=== PATIENT | male | born 1965 | race Caucasian/White ===

== ENCOUNTER → 2020-06-12 09:41 | Outpatient (CLI) | payer BC, SELFPAY ==
[2020-06-12 10:02] LABS: Bacteria Urine None Seen
[2020-06-12 10:43] LABS: Appearance Urine UA CLEAR; Bilirubin Urine UA NEGATIVE (NEGATIVE); Color Urine UA YELLOW; Glucose Urine UA NEGATIVE (Negative); Ketones Urine UA NEGATIVE (NEGATIVE); Leukocyte Esterase Urine UA NEGATIVE (NEGATIVE); Nitrite Urine UA NEGATIVE (Negative); Occult Blood Urine UA NEGATIVE (Negative); Protein Urine UA NEGATIVE (Negative); Specific Gravity Urine UA 1.015 (1.000-1.035); Urobilinogen Urine UA 0.2 E.U./dL (0.2)
[2020-06-12 11:02] LABS: Add Manual Diff / Slide Review NO; Basophils Absolute Auto 0 /uL (0-100); Basophils Percent Auto 0.5 % (0-2); Eosinophils Absolute Auto 200 /uL (0-450); Hemoglobin 14.9 g/dL (13.5-17.5); Lymphocytes Absolute Auto 2000 /uL (1100-4500); Lymphocytes Percent Auto 23.9 % (25-40); Mean Corpuscular HGB Conc 33.8 % (30-36); Mean Corpuscular Hemoglobin 34.8 PG (26-34); Monocytes Absolute Auto 600 /uL (0-900); Monocytes Percent Auto 7.7 % (3-14); Neutrophils Absolute Auto 5500 /uL (1500-7000); Neutrophils Percent Auto 65.9 % (50-75); Platelet Count 204 X10^3/uL (150-400); Red Blood Cell Count 4.27 X10^6/uL (4.5-5.9); Red Cell Distribution Width 13.3 % (11.6-14.8); White Blood Cell Count 8.3 X10^3/uL (4.5-11.0)
[2020-06-12 11:12] LABS: Hemoglobin A1C% w Est Avg Glu 5.6 % (4.0-6.0)
[2020-06-12 11:25] LABS: BUN Creatinine Ratio 10.4 (6-22); Blood Urea Nitrogen 7 mg/dL (9-20); Calcium 9.4 mg/dL (8.4-10.2); Carbon Dioxide 26 mmol/L (22-32); Chloride 103 mmol/L (98-107); Estimated Glomerular Filt Rate > 60.0 mL/min (>60); Glucose 101 mg/dL (70-100); HEMOLYSIS < 15 (0-50); Potassium 4.4 mmol/L (3.4-5.1); Sodium 138 mmol/L (137-145)
[2020-06-12 12:19] LABS: Culture Indicated Urine Cult Not Indicated; RBC Urine 0-1/HPF (0-5/HPF); Sperm Urine PRESENT; Squamous Epithelial Cell Urine 0-1 /HPF (0-5/HPF); WBC Urine 0-1/HPF (0-5/HPF)
== END ==
PROVIDERS: PCP Family Medicine; Referring Provider Orthopaedic Surgery; Visit Provider Orthopaedic Surgery
DX: Z01.812 Encounter for preprocedural laboratory examination (principal); Z01.818 Encounter for other preprocedural examination; R73.9 Hyperglycemia, unspecified; N39.0 Urinary tract infection, site not specified
CPT/HCPCS: 36415; 80048; 81001; 83036; 85025; 93005

== ENCOUNTER → 2020-07-09 08:17 | Outpatient (CLI) | payer BC, SELFPAY ==
[2020-07-10 06:49] LABS: COVID19 Sendout Not Detected (Not Detect)
== END ==
PROVIDERS: PCP Family Medicine; Visit Provider Nurse Practitioner
DX: Z11.59 Encounter for screening for other viral diseases (principal)
CPT/HCPCS: 87635

== ENCOUNTER 2020-07-12 06:15 | Day surgery (SDC) | payer BC, SELFPAY ==
[2020-07-09 13:47] VITALS: BMI 33.2
[2020-07-12] VITALS (16 sets, daily range): BP systolic 102–149; BP diastolic 58–95; PULSE 72–107; RESP 8–20; TEMP 36.2–36.8; O2SAT 93–98; BMI 32.1
--- NOTE | 2020-07-12 | DI.RAD.S_ITS ---
PROCEDURE: XR HIP W PEL IF DONE RT 2V INDICATIONS: RIGHT ANTERIOR HIP TECHNIQUE: 2 view(s) of the hip acquired. COMPARISON: None. FINDINGS: Bones: Patient is undergoing preparation for right hip arthroplasty, with hardware components in expected positions. The hip joint appears congruent. The visualized bony structures appear intact. Soft tissues: Overlying postoperative changes are noted. No suspicious soft tissue densities. IMPRESSION: Normal appearance of arthroplasty components on the right in preparation for placement of final components of right total hip arthroplasty. Dictated by: Collin Santos M.D. on 07/12/2020 at 13:09 Approved by: Collin Santos M.D. on 07/12/2020 at 13:10
--- NOTE | 2020-07-12 06:00 | DI.RAD.S_ITS ---
PROCEDURE: XR HIP W PEL IF DONE RT 2V INDICATIONS: RIGHT POSTOPERATIVE HIP TECHNIQUE: AP pelvis and lateral view of the right hip acquired. COMPARISON: [facility], [facility], XR HIP W PEL IF DONE RT 2V, 07/12/2020, 11:29. FINDINGS: Bones: Patient is status post right hip arthroplasty, with hardware components in expected positions. The hip joint appears congruent. The visualized bony structures appear intact. Soft tissues: Overlying postoperative changes are noted. No suspicious soft tissue densities. IMPRESSION: Normal alignment after right total hip arthroplasty earlier study same day. Dictated by: Collin Santos M.D. on 07/12/2020 at 13:08 Approved by: Collin Santos M.D. on 07/12/2020 at 13:09
[2020-07-12] MEDS: PREGABALIN 75 MG CAPSULE PO (06:48)
[2020-07-12] MEDS: ACETAMINOPHEN 325 MG TABLET 975 MG PO (06:48)
[2020-07-12] MEDS: LACTATED RINGERS 1,000 ML 42 ML IV ×2 (06:57→10:34)
[2020-07-12] MEDS: VANCOMYCIN 1,000 MG/200 ML PIGGYBACK 200 MG IV (06:57)
[2020-07-12] MEDS: CELECOXIB 200 MG CAPSULE PO (07:11)
--- NOTE | 2020-07-12 07:46 | PM.PREOP ---
Pre-operative Note COVID-19 COVID-19 status: Negative Interval Note History & Physical reviewed/Exam performed by Physician: Yes Changes to H&P: No
[2020-07-12] MEDS: MIDAZOLAM 2 MG/2 ML VIAL IV (07:47)
--- NOTE | 2020-07-12 07:48 | P.OP_ITS ---
Operative Date/Time/Diagnoses Date of procedure: 07/12/20 Time of procedure: 07:58 Pre-op diagnosis: right hip OA Post-op diagnosis: same Procedure & Clinicians Procedure: Right total hip arthroplasty anterior approach Same procedure as scheduled: Yes Indications: The patient has had progressively worsening right hip pain with radiographic changes consistent with arthritis. Non-operative management has failed and the patient has requested total hip replacement. The risks, benefits and alternatives to surgery were discussed with the patient prior to proceeding. Risks discussed included, but were not limited to, failure to relieve pain, leg length discrepancy, dislocation, stiffness, infection, nerve damage, deep venous thrombosis, pulmonary embolism, stroke, coma, heart attack, permanent paralysis and , as well as the potential need for eventual revision of the prosthetic. Surgeon: Elizabeth Talbot Front Office Supervisor: José White Anesthesia Type: General and Spinal Operative Notes Findings: Severe right hip osteoarthritis, tight hip, adequate bone and stability Closure Type: primary Specimen(s): none sent Prosthetic devices, grafts, tissues, transplants, or devices: Talbot [employer] Nephew 56 mm R3 cup, size 7 standard offset anthology, minus 3 x 36 femoral head, 1 screw 20 mm Estimated Blood Loss (mL): 250 Blood products transfused: none Procedure in detail: The patient was brought to the operating room. Patient was carefully positioned in the supine position. Time-out was performed and antibiotics were given. Anesthesia was induced. He was positioned in the on the table in order to allow hyperextension of the hip. The right lower extremity was prepped and draped in a standard sterile fashion. An anterior right hip incision was made 1 fingerbreadth lateral to the anterior superior iliac spine and extended distally towards the greater trochanter. Dissection was carried out through skin and subcutaneous tissues. The skin and subcutaneous tissues were carefully injected with Lidocaine with epi. Superficial hemostasis was achieved. The fascia over the tensor fascia rosibel was defined and incised with a knife. Two Allis clamps were used to grasp the fascia. Tensor fascia rosibel was retracted laterally. A gelpi retractor was placed. Dissection was carried out down along the neck. The circumflex vessels were carefully identified and cauterized with the Aqua Mantis. There was good visualization of the femoral neck. A Cobra was placed superior to the neck and the gluteus fibers were carefully stripped from that superior aspect of the capsule. A 2nd retractor was placed along the inferior aspect of the neck. The rectus insertion along the capsule was partially released. A 3rd retractor that was then gently placed over the rim of the acetabulum under the rectus. Capsule was carefully incised and released from the intertrochanteric line circumferentially superior to the mid sagittal line and inferiorly to the mid sagittal line until the lesser trochanter was palpable. A tag stitch was placed both in the superior and inferior limb of the capsular insertion. Along the acetabulum capsule was also released up to the mid sagittal 12:00 position. A portion of the labrum was resected. A saw was used to perform an osteotomy at the level of the intertrochanteric line and the junction of the superior femoral neck leaving approximately 1 finger breath of residual inferior neck above the lesser trochanter. A 2nd cut was made along the femoral neck at the base of the head and a napkin ring of neck was removed. Corkscrew was placed in the femoral head and the head was removed without difficulty. Retractors were then repositioned around the acetabulum. Residual labrum was resected and additional osteophytes were removed. A reamer that was 4 mm below the templated size was placed by hand in the acetabulum and it was reamed to centralize the acetabulum. It was then reamed up to 2 under the templated size and fluoroscopy was brought in to confirm the position of the reaming and depth of reaming. I reamed 1 under the anticipated size. A trial cup was placed and noted that it was appropriately sized and fluoroscopy confirmed position and depth. The component was open and inserted without difficulty fluoroscopic imaging was used to confirm that the cup had been adequately seated and was well positioned. It was further stabilized with a single screw. Neutral poly liner was placed. The cup was tested and noted to be stable. Attention was then directed to the femur. The femur was gently hyperextended additional capsular release was performed as needed in order to allow adequate visualization of the proximal femur with elevation of the femur. Patient was placed in a hyperextended slightly adducted position with maximum external rotation. Box osteotome was used to check for any residual neck as well as sclerotic bone along the trochanter. [place] pepper was placed in the femur. Additional broaching was performed. Canal finder was used to determine the alignment of the canal and position. Size 1 broach was placed. The canal was then appropriately broached up to the templated size as long as there was adequate stability of the broach and serial advancement of the broach without excessive impingement. Specific attention was directed at avoiding varus attempting to direct the distal aspect of the broach more anteriorly and avoiding excessive anteversion. Trial reduction showed acceptable range of motion, good stability, no posterior impingement, evangelical of leg length and appropriate lateral shuck. I also hyperflexed the hip and checked that there was no impingement anteriorly and there was good stability with flexion, adduction and internal rotation. He had a very tight hip capsule which required capsular release and meticulous mobilization around the femur as well as in the acetabulum for cup insertion. Marcaine and Exparel were injected. The stem was placed without difficulty. Repeat trial reduction and x-ray showed acceptable overall position, length, and no evidence of the femoral fracture. Final head was placed. Wound was meticulously irrigated with normal saline. The hip was reduced and additional Exparel and Marcaine were injected. The capsule was closed with interrupted nonabsorbable sutures. The fascia of the tensor was closed with interrupted and running Vicryl. No drain was placed. Any tensor fascia rosibel muscle that appeared to be contused or injured which was a minimal amount was carefully resected. Capsule around the tensor was injected with Exparel and Marcaine. The skin was closed with barbed stitches for the subcutaneous tissue and skin. We also used surgical glue. The wound was dressed sterilely. Brief Betadine soak was also used and was meticulously irrigated with normal saline. Patient was transferred to recovery room in satisfactory condition. Complications: none Post-operative Condition: stable Disposition: Acute Care Plan for aftercare: The patient will be maintained on a standard total hip replacement protocol with weight bearing as tolerated and anterior hip precautions. The patient will receive Aspirin and sequential compression devices for DVT prophylaxis. The patient will be discharged home when safe for the home environment.
[2020-07-12] MEDS: CEFAZOLIN 2 GM/100 ML FROZ.PIGGY IV ×3 (07:58→23:31)
--- NOTE | 2020-07-12 08:36 | SUR.OPER ---
Supine on padded [place] table with bilateral legs secured in padded positioning boots and suspended in positioning spars, operative leg in traction per surgeon. Head on one pillow. Arm on non-operative side secured on padded armboard <90 degrees abduction. Arm on operative side padded and resting across chest then secured with tape over sheet. Padded perineal post in place per surgeon.
[2020-07-12] MEDS: BUPIVACAINE 0.25% W/ EPI 30 ML VIAL 60 ML INJ (08:53)
[2020-07-12] MEDS: BUPIVACAINE LIPOSOME 266 MG/20 ML VIAL INJ (08:53)
[2020-07-12] MEDS: TRANEXAMIC ACID 1,000 MG VIAL 1000 MG INJ ×2 (08:54→12:07)
[2020-07-12] MEDS: fentaNYL 100 MCG/2 ML INJ IV ×2 (13:30→13:40)
[2020-07-12] MEDS: OXYCODONE/ACETAMINOPHEN 5/325 TABLET 1 TAB PO (13:52)
[2020-07-12] MEDS: IBUPROFEN 400 MG TABLET PO ×3 (14:37→20:26)
[2020-07-12] MEDS: LACTATED RINGERS 1,000 ML 125 ML IV ×2 (14:37→23:08)
[2020-07-12] MEDS: ACETAMINOPHEN 325 MG TABLET 650 MG PO ×2 (14:37→20:26)
--- NOTE | 2020-07-12 16:22 | PT.IIE ---
Current Diagnoses Unilateral primary osteoarthritis, right hip (07/12/20) Pain in right hip (07/12/20) Trochanteric bursitis, right hip (07/12/20) Surgery Performed Operation Date: 07/12/20 07:45 Actual Procedures p Total Hip Arthroplasty/Anterior Approach(Right) - Elizabeth Talbot MD Surgical History (Last Updated 07/09/20 @ 14:10 by Nhi Lynn RN) History of lumbar fusion (Acute 12/2009) History of surgery (Acute 2005) Hx of elbow surgery (Acute 2011) Hx of hernia repair (Acute ~1982) Medical History (Last Updated 07/09/20 @ 14:10 by Nhi Lynn RN) Anxiety (Acute) Arthritis (Acute) Chronic back pain (Acute) Diverticulitis (Acute) Eczema (Acute) LACY (obstructive sleep apnea) (Acute) Osteoarthritis (Acute) RLS (restless legs syndrome) (Acute) Physical Therapy Inpatient Evaluation/Re-Eval M1 PT/OT-IP Prior Functional Status Start: 07/12/20 14:52 Freq: NEEDED Status: Active Protocol: Document 07/12/20 16:02 DE (Rec: 07/12/20 16:13 DE [id number]) Medical Review Prior Functional Status Medical History Reviewed Yes Diet/Fluid Consistency Regular Communication WNL. No deficits noted. Able to make needs known. Mobility and Gait IND with all mobility and amb without AD at baseline. Activities of Daily Living and IADL's IND with all ADLs and IADLs at baseline. Social History Household Members spouse Living Arrangements House Number of Floors (Floors) One Floor Number of Stairs To Enter/Railing? 0 LINDEN through garage. 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 Pt works as a boat mechanic. Pt doesn' t have any grab bars near toilet but there is a counter top he can use for support if needed. Pt also has adjustable bed. This section is written by Jason MORELAND. It has been reviewed and approved by Kamar Sheppard , PT M2 PT-IP Current Condition Start: 07/12/20 14:52 Freq: NEEDED Status: Active Protocol: Document 07/12/20 16:04 (Rec: 07/12/20 16:22 [id number]) Physical Therapy Current Condition Current Condition Evaluation Date 07/12/20 Treatment Diagnosis R ALEJANDRA with anterior approach, difficulty in walking Onset Date 07/12/20 Precautions Anterior Hip Precautions No Hip Extension,No Hip External Rotation Weight Bearing Status Weight Bearing Status Weight Bear as Tolerated M3 PT-IP Subjective Start: 07/12/20 14:52 Freq: NEEDED Status: Active Protocol: Document 07/12/20 16:04 (Rec: 07/12/20 16:22 [id number]) Subjective Physical Therapy Visit Type Type Initial Evaluation Visit Start Time 15:29 Visit Stop Time 15:56 Total Visit Minutes 26 Notes at bedside. Co-tx with SPT Jason Blank Number of [employer] WELL[employer] COORDINATOR Visits 0 Physical Therapy Visit Comments Patient Comments Im feeling pretty good except my groin area is still numb Patient Goals To regain his mobility and strength in order to return home Therapy Pain Assessment Pain When Pain Assessed During Mobility Pain Present Pain Present Pain Reported Location Right Hip Intensity 3 Description Aching,With Movement Pain Management Techniques Timing of Activity with Medications M4 PT-IP Mobility and Gait Start: 07/12/20 14:52 Freq: NEEDED Status: Active Protocol: Document 07/12/20 16:04 (Rec: 07/12/20 16:22 [id number]) PT-Bed Mobility Assessment Supine to Sit Supine to Sit Standby Assistance Scooting Scooting to Edge of Bed Standby Assistance PT-Transfer Assessment Sit to and From Stand Sit to and from Stand Contact Guard Assistance,Use of Upper Extremities Equipment Transfer Assistive Device Gait Belt,Front Wheeled Walker Orthotic/Prosthetic Devices or Brace: No Transfers Transfer Destination Bed,Chair Transfer Technique Stand Step Pivot Transfer Ability Level of Assist Contact Guard Assistance,Use of Upper Extremities Comments Mobility Comments Pt was in bed upon SPT and PT arrival. at bedside. Pt is AxO x 4 and able to move B LEs. He was able to answer all questions and recalled post op precautions. He initially completed supine to long sit followed by lifting his LE one at a time to sit at EOB on L side. He then stood up with with FWW CGA and praciticed lateral weight shift. He was able to amb immediately with close to WFL gait pattern with slight antalgic pattern only. Pt was well aware of his precautions to avoid hip ER and extension. He walked up to the hallway and returned to room after for a total of 45 ft with CGA and step over pattern. He returned and requested to use bathroom to void. He stood in front of the toilet and able to stand unsupported for a few seconds to void but unsuccessful. He then walked out and transferred himself to chair with stand step pivot safely with good descend via use of chair armrests. BP at 122/84. Call light placed within reach . Gait Assessment Gait Gait Assistance Required: Contact Guard Assist Distance (Feet) 45 Able to Maintain Weight Bearing Status Yes During Gait Assistive Devices Assistive Device Gait Belt,Front Wheeled Walker Orthotic/Prosthetic Devices or Brace: No Gait Deviations General Gait Pattern Antalgic,Decreased Stride Length,Decreased Feet Clearance Factors Limiting Gait Function Factors Limiting Gait Function Decreased Activity Tolerance, Decreased Strength,Limited Range of Motion,Pain,Poor Balance Comments Gait Comments see mobility comments. Stair Climbing Assessment Comments Stair Climbing Comments did not assess yet. PT-Balance Assessment Sitting Balance and Reactions Static Sitting Balance Ability Normal Dynamic Sitting Balance Ability Normal Standing Balance and Reactions Static Standing Balance Ability Normal Dynamic Standing Balance Ability Good Device Used FWW M5 PT-IP Objective Assessments Start: 07/12/20 14:52 Freq: NEEDED Status: Active Protocol: Document 07/12/20 16:04 (Rec: 07/12/20 16:22 [id number]) Orientation Orientation/Cognition Level of Alertness Alert Orientation Name,Age,Birthday,Month,Date, Year,Day of Week,Place, Situation Language Function Ability No Deficits Noted Safety Awareness Understands Safety Issues Memory Description No Deficits Noted Gross Range of Motion Upper Extremity ROM Assessment Within Functional Limits Lower Extremity ROM Assessment Right Impaired Strength Upper Extremity Strength Assessment Within Functional Limits Lower Extremity Strength Assessment Right Impaired Hip 4-/5 Knee 4+/5 Coordination Assessment Gross Coordination Gross Coordination WNL Sensation Assessment Sensation Gross Sensation Right LE Impaired Light Touch Impaired Sensation Description Numbness Comments Sensation Comments @ groin and lateral aspect Muscle Tone Muscle Tone WNL Yes M6 PT-IP Treatment Start: 07/12/20 14:52 Freq: NEEDED Status: Active Protocol: Document 07/12/20 16:04 (Rec: 07/12/20 16:22 [id number]) Physical Therapy Treatment Exercises Exercises Ankle Pumps,Gluteal Sets,Quad Sets Education Education Provided Precautions,Weight Bearing Status,Post-Op Packet,Safety M7 PT-IP Assessment and Plan Start: 07/12/20 14:52 Freq: NEEDED Status: Active Protocol: Document 07/12/20 16:04 (Rec: 07/12/20 16:22 [id number]) PT Summary Assessment and Plan Potential Rehabilitation Potential Excellent Status of Condition at Evaluation Stable Summary Impairments Pain,ROM,Strength,Balance, Sensation,Bed Mobility, Transfers,Gait,Activity Tolerance Assessment Summary This is a low complexity evaluation for this 55 yo male s/p POD0 LTHA with anterior approach. PLOF= pt is completely independently for mobility without using AD. 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 CLOF = Pt is able to amb 45 ft with FWW with minimal antaglic gait. He is well aware of his post op precautions with good safety awareness as well. Expect pt to be d/c home with assistance tomorrow morning, along with outpatient PT. Goals Bed Mobility Goal Standby Assistance Transfer Goal Standby Assistance,Front Wheeled Walker Gait Goal Standby Assistance,Front Wheel Walker Gait Distance 200 Days to Meet Goals 2 Frequency of Treatment Frequency Of Treatment Twice a Day Treatment Plan Physical Therapy Treatment Plan Bed Mobility Training,Transfer Training,Gait Training, Therapeutic Exercise,Balance Retraining,Post Op Education, Discharge Planning,Hot or Cold Pack,Neuromuscular Re-ed Other Recommendations and Next Treatment mobility as ashwin Focus Recommendations To Nursing Amount of Assist Needed 1 Person Assist Discharge Recommendations PT Discharge Recommendations Home with Assistance, Outpatient PT Transportation Needs at Discharge Private Vehicle
[2020-07-12] MEDS: TAMSULOSIN 0.4 MG CAPSULE PO (17:13)
[2020-07-12] MEDS: LORazepam 0.5 MG TABLET PO (19:01)
[2020-07-12] MEDS: DOCUSATE 100 MG CAPSULE PO (20:26)
[2020-07-12] MEDS: ASPIRIN EC 81 MG TABLET PO (20:26)
[2020-07-12] MEDS: OXYCODONE IR 5 MG TABLET PO ×2 (20:29→23:31)
--- NOTE | 2020-07-12 23:47 | PC.NURSE ---
Addendum entered by Radha Jay R.N. 07/13/20 06:28: Medicated for 3/10 right LE pain with Oxycodone. Original Note: Patient is alert and oriented. Breath sounds CTA with RA sat of 97%. HRR. Denies nausea. BT present and is passing flatus. Voiding per urinal; denies dysuria, frequency or urgency. Able to move self in bed. Uses walker and 1 assist when out of bed due weakness in right LE. Aquacel dressing to right hip is CDI. Complains of 6/10 pain in right hip/thigh so medicated with Oxycodone and ice applied. CMS is intact. Wearing bilateral calf SCD's. Fall risk score is moderate and bed alarm is activated. CIWA is 0.
[2020-07-13] MEDS: IBUPROFEN 400 MG TABLET PO ×3 (01:11→09:49)
[2020-07-13] MEDS: OXYCODONE IR 5 MG TABLET PO ×3 (02:29→09:48)
[2020-07-13 05:10] VITALS: BP 118/72; PULSE 77; RESP 16; TEMP 36.7; O2SAT 97
[2020-07-13 07:00] LABS: Hematocrit 34.9 % (41-53); Hemoglobin 11.8 g/dL (13.5-17.5)
--- NOTE | 2020-07-13 08:19 | PM.PN.1 ---
Subjective Subjective Date Patient Seen: 07/13/20 Time Patient Seen: 08:19 Interval history: Patient is POD#1 s/p right anterior ALEJANDRA with Dr. Talbot. Patient doing well. Pain controlled with Oxycodone/Advil/Tylenol. He has been ambulating well both with PT yesterday and around the room today/overnight. Voiding appropriately. Tolerating a diet. No complaints. Exam Vital Signs (past 8 hours): - 07/13/20 05:10 Temperature 98.1 F Pulse Rate 77 Respiratory Rate 16 Blood Pressure 118/72 Pulse Oximetry 97 Oxygen Delivery Method Room Air Oxygen Flow Rate 0 Narrative Exam Narrative: 55 year old male resting in chair. Alert and oriented in no acute distress. Dressing in place is CDI. Patient able to perform straight leg raise. Calves soft, nontender. Objective Labs Result Diagrams: 07/13/20 06:52 Labs: Laboratory Results - last 24 hr 07/13/20 06:52 Hgb 11.8 L Hct 34.9 L Assessment & Plan Assessment & Plan narrative: Patient doing well postoperatively. He has already mobilized extensively. His is available at home as caregiver. He will be provided script for Oxycodone for postop pain relief. Continue ASA 81mg BID for DVT prophylaxis. Discharge to home today.
[2020-07-13 08:30] VITALS: BP 134/71; PULSE 76; RESP 16; TEMP 36.4; O2SAT 98
--- NOTE | 2020-07-13 09:02 | CM.DANOTE ---
Addendum entered by Lynda Gracia LPN 07/13/20 10:51: A check in now shows that pt did leave for home in company of his before Team Rounds were over. No d/c concerns were identified by the care team members. Original Note: Discharge Planning/Care Management DCP: assessment: case received, EMR reviewed. DC to home order noted by ortho team. Pt is a 55 year old male who admitted yesterday for a scheduled R ALEJANDRA/anterior approach Payer: DEACON Alvarez PCP: Kareem Kebede PT did work with pt late yesterday and documenation indicates pt doing well thus far for his pre-op plan of home, 's prn support and OUTPT PT. Will discuss in Team Rounds and follow for any d/c needs that may arise. CM Discharge Assessment Start: 07/13/20 09:01 Freq: Status: Active Protocol: Document 07/13/20 09:01 ITV (Rec: 07/13/20 09:02 ITV [id number]) Discharge Planning Assessment Advance Directives? No History Provided By Medical Record Prior Living Arrangements House Household Members spouse Independent with ADL's Yes Is patient alert and oriented? Yes Discharge Plan Home Review Status In Process Pre-Anesthesia Assessment Start: 07/09/20 13:47 Freq: Status: Complete Protocol: Document 07/09/20 13:47 CAB (Rec: 07/09/20 14:47 CAB [id number]) Pre-Anesthesia Assessment PAC Comment Pt would like a nicotine patch Patient Information Reviewed Via Phone Assessment Assessment Completed With Patient H&P Completed Within 30 Days Yes Diagnostic Results BMP/CMP,CBC,EKG,Urinalysis Comment Labs/EKG @ [facility] 06/12/20, COVID screen @ [facility] 07/09/20-Pending Primary Care Provider Kareem Kebede Seen Specialist in Last 12 Months Yes Specialist Seen Orthopedist Primary Language [place] Alterations Tailor Required No Height 167.64 cm Weight 93.44 kg Body Mass Index (BMI) 33.2 Hearing Ability Normal Visual Assist Glasses Barriers to Learning None Hx Anesthesia Reactions No: Untreated Sleep apnea Hx Family Anesthesia Reaction No Hx Malignant Hyperthermia No Hx Blood Transfusions Yes: Age 18 months old, pt thinks it was related to anemia Anesthesia Review Requested No alcohol intake current alcohol intake frequency 3 or more drinks per day Alcohol Intake Frequency Other: Currently 6 drinks daily, encouraged to reduce daily intake Smoking Status Current every day smoker Tobacco type cigarettes Smoking packs per day 1 Substance Use Type does not use Pain Present Pain Reported Musculoskeletal Symptoms Abnormal Gait,Back Pain, Difficulty Walking,Joint Pain History of Falling (Recent or History of No ) Patient is completely paralyzed or No completely immobile Mental Status Oriented to own ability Is patient on oxygen? No Does patient have GRAJEDA/SOB No Hx Sleep Apnea Yes CPAP/BIPAP use prescribed not used Currently Taking a Beta Alon No Can You Climb a Flight of Stairs Without Yes SOB Hx Chest Pain No Hx SOB No Hx Syncope or Dizziness No Anti-Coagulant Therapy No Has a Histologic Technician No Cardiac Testing No Hx Pacemaker/ICD No Pacemaker Rep Required? No Cardiac Clearance Received Not Applicable Diet Type At Home Regular dysphagia No Gastrointestinal Symptoms Constipation,Hemorrhoids Urinary Catheter Present No Hx Urinary Self Catheterization No Diabetes No HgbA1C 5.6 Date 06/12/20 Hx Drug Resistant Organism No Presence of External or Internal Medical Yes: Lumbar fusion Devices Have you had any close contact with No someone diagnosed with COVID-19? Marital Status Lives With spouse Prior Living Arrangements House Number of Floors (Floors) One Floor Support System Spouse Does the Patient Have Assistance After Yes Surgery Patient Discharge Plan Description Return Home Comment Pt advised overnight stay per surgeon Feels Safe in Current Environment Yes Been Physically Hurt or Threatened By a No Person in Current Environment Do you have thoughts of harming yourself None or others? Are you currently considering suicide? No Do you have a plan to hurt yourself or No Plan others? Do You Have Any Spiritual Beliefs That No May Affect Your HC Choices? Do You Have Any Cultural Practices That No May Affect Your HC Choices? Who Can We Speak to About Patient's Care Family, friends Identifying Code for Release of Patient Declines to issue Information Health Care Proxy/Next of Kin Alpa () Health Care Proxy Emergency Contact Name Alpa () Emergency Contact Advance Directives? No Power of Gang Drill Operator No PAC Instructions Durable medical equipment, Medications to take/avoid, Nasal antibiotic,No ETOH/ petroleum product on skin DOS, NPO,Pre-surgical wash,Sturdy shoes/comfortable clothes
[2020-07-13] MEDS: DOCUSATE 100 MG CAPSULE PO (09:48)
[2020-07-13] MEDS: ACETAMINOPHEN 325 MG TABLET 650 MG PO (09:48)
[2020-07-13] MEDS: ASPIRIN EC 81 MG TABLET PO (09:48)
[2020-07-13] MEDS: TAMSULOSIN 0.4 MG CAPSULE PO (09:49)
--- NOTE | 2020-07-13 10:01 | PT.IPTN ---
Current Diagnoses Unilateral primary osteoarthritis, right hip (07/12/20) Pain in right hip (07/12/20) Trochanteric bursitis, right hip (07/12/20) Surgery Performed Operation Date: 07/12/20 07:45 Actual Procedures p Total Hip Arthroplasty/Anterior Approach(Right) - Elizabeth Talbot MD Physical Therapy Treatment Note M2 PT-IP Current Condition Start: 07/12/20 14:52 Freq: NEEDED Status: Discharge Protocol: Document 07/12/20 16:04 HH (Rec: 07/12/20 16:22 HH [id number]) Physical Therapy Current Condition Current Condition Evaluation Date 07/12/20 Treatment Diagnosis R ALEJANDRA with anterior approach, difficulty in walking Onset Date 07/12/20 Precautions Anterior Hip Precautions No Hip Extension,No Hip External Rotation Weight Bearing Status Weight Bearing Status Weight Bear as Tolerated M3 PT-IP Subjective Start: 07/12/20 14:52 Freq: NEEDED Status: Discharge Protocol: Document 07/13/20 09:47 KS (Rec: 07/13/20 12:06 KS [id number]) Subjective Physical Therapy Visit Type Type Treatment Note Visit Start Time 09:47 Visit Stop Time 10:01 Total Visit Minutes 14 Number of STONEWORKING BELT SANDER Visits 1 Physical Therapy Visit Comments Patient Comments Pt eager to return home w/ . Patient Goals To regain his mobility and strength in order to return home Therapy Pain Assessment Pain When Pain Assessed During Mobility Pain Present Pain Present Pain Reported Location Right Hip Intensity 4 Scale Used Numeric (0 - 10) Description Aching,With Movement Pain Management Techniques Timing of Activity with Medications M4 PT-IP Mobility and Gait Start: 07/12/20 14:52 Freq: NEEDED Status: Discharge Protocol: Document 07/13/20 09:47 KS (Rec: 07/13/20 12:06 KS [id number]) PT-Bed Mobility Assessment Supine to Sit Supine to Sit Standby Assistance Sit to Supine Sit to Supine Standby Assistance Scooting Scooting to Edge of Bed Standby Assistance PT-Transfer Assessment Sit to and From Stand Sit to and from Stand Standby Assistance,1 Person Assistance,Use of Upper Extremities Equipment Transfer Assistive Device Gait Belt,Front Wheeled Walker Orthotic/Prosthetic Devices or Brace: No Transfers Transfer Destination Bed,Chair Transfer Technique pt ambulated w/ FWW Transfer Ability Level of Assist Standby Assistance,1 Person Assistance,Use of Upper Extremities Comments Mobility Comments Pt in chair upon arrival from therapy w/ in room. Pt SBA for sit<>stand from chair, pt then performed bed mobility sit<>sup<>sit SBA. Pt then sit<>stand SBA w/ FWW and ambulated to platform step . Pt ascended/descended 1 platform step w/ FWW SBA w/ cues for leg sequencing. Pt then ambulated additional ~100 ft w/ FWW. Pt demonstrated good safety and use of FWW as well as good awareness of precautions. Pt returned to chair in room and left in chair w/ all needs in reach. Pt confirms he has outpatient rehab set up to begin on the . Gait Assessment Gait Gait Assistance Required: Standby Assistance,1 Person Assist Distance (Feet) 150 Able to Maintain Weight Bearing Status Yes During Gait Assistive Devices Assistive Device Gait Belt,Front Wheeled Walker Orthotic/Prosthetic Devices or Brace: No Gait Deviations General Gait Pattern Antalgic,Decreased Stride Length,Decreased Feet Clearance Factors Limiting Gait Function Factors Limiting Gait Function Decreased Activity Tolerance, Decreased Strength,Limited Range of Motion,Pain Comments Gait Comments see mobility comments. Stair Climbing Assessment Evaluation Level of Assist On Stairs Standby Assistance,1 Person Assistance Devices Stair Climbing Assistive Devices Front Wheel Walker Technique/Endurance Stair Climbing Direction Ascend and Descend Stair Climbing Technique Step to Step Number of Steps Climbed 1 Stair Climbing Set # Repetitions (reps) 1 Comments Stair Climbing Comments Pt ascended/descended 1 platform step w/ FWW SBA w/ cues for leg sequencing. Pt states he feels safe to complete platform step at home . PT-Balance Assessment Sitting Balance and Reactions Static Sitting Balance Ability Normal Dynamic Sitting Balance Ability Normal Standing Balance and Reactions Static Standing Balance Ability Normal Dynamic Standing Balance Ability Good Device Used FWW M5 PT-IP Objective Assessments Start: 07/12/20 14:52 Freq: NEEDED Status: Discharge Protocol: Document 07/12/20 16:04 (Rec: 07/12/20 16:22 [id number]) Orientation Orientation/Cognition Level of Alertness Alert Orientation Name,Age,Birthday,Month,Date, Year,Day of Week,Place, Situation Language Function Ability No Deficits Noted Safety Awareness Understands Safety Issues Memory Description No Deficits Noted Gross Range of Motion Upper Extremity ROM Assessment Within Functional Limits Lower Extremity ROM Assessment Right Impaired Strength Upper Extremity Strength Assessment Within Functional Limits Lower Extremity Strength Assessment Right Impaired Hip 4-/5 Knee 4+/5 Coordination Assessment Gross Coordination Gross Coordination WNL Sensation Assessment Sensation Gross Sensation Right LE Impaired Light Touch Impaired Sensation Description Numbness Comments Sensation Comments @ groin and lateral aspect Muscle Tone Muscle Tone WNL Yes M6 PT-IP Treatment Start: 07/12/20 14:52 Freq: NEEDED Status: Discharge Protocol: Document 07/13/20 09:47 KS (Rec: 07/13/20 12:06 CT [id number]) Physical Therapy Treatment Education Education Provided Precautions,Weight Bearing Status,Post-Op Packet,Safety M7 PT-IP Assessment and Plan Start: 07/12/20 14:52 Freq: NEEDED Status: Discharge Protocol: Document 07/13/20 09:47 KS (Rec: 07/13/20 12:06 CT [id number]) PT Summary Assessment and Plan Potential Rehabilitation Potential Excellent Status of Condition at Evaluation Stable Summary Impairments Pain,ROM,Strength,Balance, Sensation,Bed Mobility, Transfers,Gait,Activity Tolerance Progress Towards Goals Progressing Toward Goals Assessment Summary Pt SBA for all mobility, transfers, ambulation, and stairs and has good awareness for hip precautions and safety . Pt ambulated ~150 ft w/ FWW and ascended/descended 1 platform step w/ FWW and cues for leg sequencing. Pt will benefit from outpatient therapy to improve strength and ROM, which he has set up to begin on the . Goals Bed Mobility Goal Standby Assistance Transfer Goal Standby Assistance,Front Wheeled Walker Gait Goal Standby Assistance,Front Wheel Walker Gait Distance 200 Days to Meet Goals 2 Frequency of Treatment Frequency Of Treatment Twice a Day Treatment Plan Physical Therapy Treatment Plan Bed Mobility Training,Transfer Training,Gait Training, Therapeutic Exercise,Balance Retraining,Post Op Education, Discharge Planning,Hot or Cold Pack,Neuromuscular Re-ed Other Recommendations and Next Treatment mobility as ashwin Focus Recommendations To Nursing Amount of Assist Needed 1 Person Assist Discharge Recommendations PT Discharge Recommendations Home with Assistance, Outpatient PT Transportation Needs at Discharge Private Vehicle
--- NOTE | 2020-07-13 10:23 | PC.NURSE ---
Day shift note: Patient cleared for discharge home by PT and PA. Discharge instructions given to both patient and , discussed importance of F/U with Ortho appt, new medications, dressing care, mobility precautions, and s/sx of infections. Both verbalized understanding of instructions. Discharged home via private vehicle.
== END 2020-07-13 10:25 | disposition home or self-care (01) ==
LOC: OR 06:16 → AC 06:18
PROVIDERS: PCP Family Medicine; Referring Provider Family Medicine; Visit Provider Orthopaedic Surgery
PROC: (CPT 27130; principal; 2020-07-12 07:45)
DX: M16.11 Unilateral primary osteoarthritis, right hip (principal); M70.61 Trochanteric bursitis, right hip; G47.33 Obstructive sleep apnea (adult) (pediatric)
CPT/HCPCS: 27130; 36415; 73502; 76000; 85014; 85018; 97116; 97161; C1776; C9290; J0690; J2250; J3010